=== PATIENT | female | born 1955 | race Two or more races ===

== ENCOUNTER 2021-03-24 12:44 | Outpatient (CLI) | payer OTHER | END 2021-03-24 12:48 | disposition home or self-care (01) | LOC: NUCLEAR 12:44 | PROVIDERS: ATTEND Obstetrics & Gynecology | DX: M81.0 Age-related osteoporosis without current pathological fracture (principal) ==

== ENCOUNTER → 2021-06-16 08:34 | Outpatient (CLI) | payer OTHER | END | disposition home or self-care (01) | LOC: LAB 08:34 | PROVIDERS: ATTEND Internal Medicine Hematology & Oncology | DX: D50.8 Other iron deficiency anemias (principal); R79.89 Other specified abnormal findings of blood chemistry; I10 Essential (primary) hypertension; R74.02 Elevation of levels of lactic acid dehydrogenase [LDH]; K76.89 Other specified diseases of liver; D68.8 Other specified coagulation defects; D69.1 Qualitative platelet defects; C56.9 Malignant neoplasm of unspecified ovary; R97.0 Elevated carcinoembryonic antigen [CEA]; R97.8 Other abnormal tumor markers; R97.1 Elevated cancer antigen 125 [CA 125]; D72.818 Other decreased white blood cell count; M81.0 Age-related osteoporosis without current pathological fracture; R31.21 Asymptomatic microscopic hematuria ==

== ENCOUNTER 2021-10-12 07:59 | Outpatient (CLI) | payer OTHER | END 2021-10-12 08:01 | disposition home or self-care (01) | LOC: LAB 07:59 | PROVIDERS: ATTEND Internal Medicine Hematology & Oncology | DX: D50.8 Other iron deficiency anemias (principal); R79.89 Other specified abnormal findings of blood chemistry; I10 Essential (primary) hypertension; R74.02 Elevation of levels of lactic acid dehydrogenase [LDH]; K76.89 Other specified diseases of liver; D51.8 Other vitamin B12 deficiency anemias; R97.0 Elevated carcinoembryonic antigen [CEA]; R97.8 Other abnormal tumor markers; N39.0 Urinary tract infection, site not specified; D72.818 Other decreased white blood cell count; M81.0 Age-related osteoporosis without current pathological fracture; R31.21 Asymptomatic microscopic hematuria ==

== ENCOUNTER 2021-10-19 07:30 | Outpatient (CLI) | payer OTHER | END 2021-10-19 07:58 | disposition home or self-care (01) | LOC: TOM 07:30 | PROVIDERS: ATTEND Internal Medicine Hematology & Oncology | DX: M81.0 Age-related osteoporosis without current pathological fracture (principal); D72.818 Other decreased white blood cell count ==

== ENCOUNTER 2022-02-08 08:00 | Outpatient (CLI) | payer OTHER | END 2022-02-08 08:01 | disposition home or self-care (01) | LOC: LAB 08:00 | PROVIDERS: ATTEND Internal Medicine Hematology & Oncology | DX: D50.8 Other iron deficiency anemias (principal); R79.9 Abnormal finding of blood chemistry, unspecified; I10 Essential (primary) hypertension; R74.02 Elevation of levels of lactic acid dehydrogenase [LDH]; K76.89 Other specified diseases of liver; R97.0 Elevated carcinoembryonic antigen [CEA]; R97.8 Other abnormal tumor markers; D72.818 Other decreased white blood cell count; M81.0 Age-related osteoporosis without current pathological fracture; R31.21 Asymptomatic microscopic hematuria; D51.0 Vitamin B12 deficiency anemia due to intrinsic factor deficiency; D51.1 Vitamin B12 deficiency anemia due to selective vitamin B12 malabsorption with proteinuria; D51.8 Other vitamin B12 deficiency anemias ==

== ENCOUNTER 2023-03-26 07:26 | Outpatient (CLI) | payer OTHER | END 2023-03-26 07:27 | disposition home or self-care (01) | LOC: LAB 07:26 | PROVIDERS: ATTEND Obstetrics & Gynecology | DX: I10 Essential (primary) hypertension (principal); E78.49 Other hyperlipidemia; E03.8 Other specified hypothyroidism; N30.00 Acute cystitis without hematuria; E55.9 Vitamin D deficiency, unspecified; Z12.11 Encounter for screening for malignant neoplasm of colon ==

== ENCOUNTER 2023-03-26 08:13 | Outpatient (CLI) | payer OTHER | END 2023-03-26 08:23 | disposition home or self-care (01) | LOC: MAMO-SONO 08:13 | PROVIDERS: ATTEND Obstetrics & Gynecology | DX: Z12.31 Encounter for screening mammogram for malignant neoplasm of breast (principal); N60.11 Diffuse cystic mastopathy of right breast; N60.12 Diffuse cystic mastopathy of left breast ==

== ENCOUNTER 2024-10-29 06:28 | Outpatient (CLI) | payer OTHER ==
[2024-10-29 07:25] LABS: URINE BILIRRUBIN NEGATIVE (NEGATIVE); URINE BLOOD MODERATE; URINE GLUCOSE NEGATIVE (NEGATIVE); URINE KETONE NEGATIVE (NEGATIVE); URINE LEUKOCYTE MODERATE; URINE NITRATE NEGATIVE; URINE PROTEIN NEGATIVE (NEGATIVE); URINE UROBILINOGEN 0.2 E.U./dl
[2024-10-29 07:44] LABS: HEMATOCRIT 35.5 % (36.0-45.00); MEAN CELL VOLUME 92.4 fL (80.00-100.00); MEAN CORPUSCULAR HEMOGLOBIN 31.2 pg (27.00-32.0); MEAN CORPUSCULAR HGB CONC 33.8 g/dl (32.0-36.0); PLATELET COUNT 269 K/uL (150-450); RED BLOOD COUNT 3.84 M/uL (4.00-6.00); RED CELL DISTRIBUTION WIDTH 13.9 % (11.5-14.5)
[2024-10-29 08:03] LABS: URINE APPEARANCE CLEAR; URINE COLOR YELLOW
[2024-10-29 08:04] LABS: URINE BACTERIA MANY; URINE CRYSTALS FEW /HPF; URINE MUCUS SCANT; URINE RBC 19-25 /HPF
[2024-10-29 08:47] LABS: ALBUMIN 3.2 gm/dL (3.4-5.0); ALKALINE PHOSPHATASE 73 U/L (50-136); ALT/SGPT 22 U/L (12-78); ANION GAP 7 (10.0-20.0); AST/SGOT 23 U/L (15-37); BILIRUBIN TOTAL 0.51 mg/dL (0.3-1.2); BLOOD UREA NITROGEN 16 mg/dL (7-18); BUN CREA RATIO 24 (7.0-25.0); C-REACTIVE PROTEIN < 0.29 MG/DL (0.00-0.29); CALCIUM 9.1 mg/dL (8.5-10.1); CARBON DIOXIDE 32 mEq/L (21-32); CHLORIDE 108 mmol/L (98-107); CHOL HDL RATIO 2.6 (0-5.0); CHOLESTEROL 177 mg/dL (0-200); CREATININE SERUM 0.66 mg/dL (0.55-1.02); GFR 89.06; GLOBULINA 3.2 G/DL (2.4-3.5); GLUCOSE FASTING 96 mg/dL (65-100); HDL 69 mg/dl (40-60); LDL 95 mg/dl (0-130); OSMOLALITY SERUM 284 MOSM/KG (275-295); POTASSIUM 4.84 mEq/L (3.5-5.1); SODIUM 142 mmol/L (136-145); TOTAL PROTEIN 6.4 gm/dL (6.4-8.2); TRIGLYCERIDES 64 mg/dL (0-150); VLDL 12 (0-39)
[2024-10-29 09:37] LABS: RH POSITIVE
[2024-10-29 10:36] LABS: VITAMIN D3 25 HYDROXY 20.31 ng/ml (30-120)
[2024-10-29 11:14] LABS: ob NEGATIVE (NEGATIVE)
== END 2024-10-29 06:29 | disposition home or self-care (01) ==
LOC: LAB 06:28
PROVIDERS: ATTEND General Practice
DX: D64.9 Anemia, unspecified (principal); E86.0 Dehydration; E03.8 Other specified hypothyroidism; E55.9 Vitamin D deficiency, unspecified; E53.8 Deficiency of other specified B group vitamins; E11.65 Type 2 diabetes mellitus with hyperglycemia; Z12.11 Encounter for screening for malignant neoplasm of colon; I11.9 Hypertensive heart disease without heart failure; E78.2 Mixed hyperlipidemia; N39.0 Urinary tract infection, site not specified

== ENCOUNTER 2024-11-03 08:15 | Outpatient (CLI) | payer OTHER | END 2024-11-03 08:32 | disposition home or self-care (01) | LOC: MAMO-SONO 08:15 | PROVIDERS: ATTEND General Practice | DX: N64.4 Mastodynia (principal); Z12.31 Encounter for screening mammogram for malignant neoplasm of breast ==

== ENCOUNTER 2024-11-17 12:55 | Outpatient (CLI) | payer OTHER | END 2024-11-17 12:58 | disposition home or self-care (01) | LOC: NUCLEAR 12:55 | PROVIDERS: ATTEND General Practice | DX: M81.0 Age-related osteoporosis without current pathological fracture (principal) ==

== ENCOUNTER → 2025-03-06 06:32 | Outpatient (CLI) | payer OTHER ==
[2025-03-06 07:07] LABS: PH,URINE 7.5 (5.0-8.0); URINE APPEARANCE Clear; URINE BILIRRUBIN Negative (NEGATIVE); URINE BLOOD Moderate; URINE COLOR Yellow; URINE GLUCOSE Negative (NEGATIVE); URINE KETONE Negative (NEGATIVE); URINE LEUKOCYTE Trace; URINE NITRATE Negative; URINE PROTEIN Negative (NEGATIVE); URINE UROBILINOGEN 0.2 E.U./dl
[2025-03-06 07:08] LABS: URINE BACTERIA 122.3 uL (0.0-1933); URINE EPITHELIAL CELLS 17.7 uL (0.0-38.8); URINE RBC 237.8 uL (0.0-20.8); URINE WBC 6.6 uL (0.0-23.2)
[2025-03-06 07:11] LABS: BASO % 0.9 % (0.1-1.2); EOS # 0.18 (0.04-0.54); EOS % 5.4 % (0.7-7.0); HEMATOCRIT 35.3 % (34.1-44.9); HEMOGLOBIN 11.8 g/dL (11.2-15.7); LYMPH # 1.26 (1.18-3.74); LYMPH % 38.1 % (19.3-53.1); MEAN CORPUSCULAR HEMOGLOBIN 30.4 pg (25.6-32.2); MONO # 0.45 (0.24-0.82); NEUT # 1.39 (1.56-6.13); PLATELET COUNT 255 K/uL (163-369); RED BLOOD COUNT 3.88 M/uL (3.93-5.22); RED CELL DISTRIBUTION WIDTH 13.3 % (11.6-14.4)
[2025-03-06 07:17] LABS: URINE CAST 0.14 uL (0.0-1.40)
[2025-03-06 07:20] LABS: MONO % 13.6 % (4.7-12.5)
[2025-03-06 08:04] LABS: ALBUMIN 3.4 gm/dL (3.4-5.0); ALKALINE PHOSPHATASE 70 U/L (50-136); ALT/SGPT 19 U/L (12-78); ANION GAP 7 (10.0-20.0); AST/SGOT 22 U/L (15-37); BLOOD UREA NITROGEN 13 mg/dL (7-18); BUN CREA RATIO 18 (7.0-25.0); CALCIUM 9.3 mg/dL (8.5-10.1); CARBON DIOXIDE 32 mEq/L (21-32); CHLORIDE 109 mmol/L (98-107); CHOL HDL RATIO 2.7 (0-5.0); CHOLESTEROL 182 mg/dL (0-200); CREATININE SERUM 0.71 mg/dL (0.55-1.02); GFR 81.62; GLOBULINA 3.4 G/DL (2.4-3.5); GLUCOSE FASTING 92 mg/dL (65-100); HDL 68 mg/dl (40-60); LDL 101 mg/dl (0-130); OSMOLALITY SERUM 285 MOSM/KG (275-295); POTASSIUM 4.51 mEq/L (3.5-5.1); SODIUM 143 mmol/L (136-145); TOTAL PROTEIN 6.8 gm/dL (6.4-8.2); TRIGLYCERIDES 64 mg/dL (0-150); VLDL 12 (0-39)
[2025-03-06 08:05] LABS: C-REACTIVE PROTEIN < 0.29 MG/DL (0.00-0.29)
== END | disposition home or self-care (01) ==
LOC: LAB 06:32
PROVIDERS: ATTEND General Practice
DX: D64.9 Anemia, unspecified (principal); E86.0 Dehydration; E55.9 Vitamin D deficiency, unspecified; E53.8 Deficiency of other specified B group vitamins; E11.65 Type 2 diabetes mellitus with hyperglycemia; I11.9 Hypertensive heart disease without heart failure; E78.2 Mixed hyperlipidemia; N39.0 Urinary tract infection, site not specified; E83.42 Hypomagnesemia; R79.83 Abnormal findings of blood amino-acid level; E72.11 Homocystinuria; D52.9 Folate deficiency anemia, unspecified